=== PATIENT | female | born 1970 | race Caucasian/White ===

== ENCOUNTER 2024-05-20 19:31 | Emergency (ER) | payer OTHER, SELFPAY ==
--- OUTSIDE RECORDS SUMMARY | 2024-05-20 19:33 | XMS_ITS | Referral Summary ---
Author Organization [facility] Address [address] [place] [address] Care Team Providers Care Insight Director Name Role Phone Hussein Simental MD Primary Care Provider [phone] Allergies No known active allergies Medications No known medications Active Problems No known active problems Social History Tobacco Use Types Packs/Day Years Used Date Smoking Tobacco: Light Smoker Comments:Smoking History Pac ks/day: 1 Cigarettes Alcohol Use Standard Drinks/Week Comments Yes 0 (1 standard drink = 0.6 oz pur e alcohol) Personal Safety Answer Date Recorded Getting School Help Needed Not on file 04/12 Comments No Sex and Gender Information Value Date Recorded Sex Assigned at Not on file Legal Sex Female 11:07 PM 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 Gender Identity Not on file Sexual Orientation Not on file Last Filed Vital Signs Vital Sign Reading Time Taken Comments Blood Pressure 123/80 03/22/2021 5:12 PM 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 Pulse 124 03/22/2021 5:43 PM 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 Temperature 37.2 C (99 F) 03/22/2021 5:12 PM 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 Respiratory Rate 14 03/22/2021 5:12 PM 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 Oxygen Saturation 100% 03/22/2021 5:12 PM 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 Inhaled Oxygen Concentration - - Weight 72.6 kg (160 lb) 03/22/2021 5:12 PM 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 Height 172.7 cm (5' 8 ) 03/22/2021 5:12 PM 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 Body Mass Index 24.33 03/22/2021 5:12 PM 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 Plan of Treatment Not on file Insurance [facility] CHOICE PLUS Care Teams Insight Director Relationship Specialty Start Date End Date Hussein Simental MD [address] [place] [address] [place] [address] PCP - General 08/29/20
--- OUTSIDE RECORDS SUMMARY | 2024-05-20 19:33 | XMS_ITS | Clinical Summary ---
Author Organization [facility] Address [address] [place] [address] Care Team Providers Care Ghost Writer Name Role Phone Hussein Simental MD Primary Care Provider [phone] [phone] Allergies No known active allergies Medications No [...] on file Legal Sex Female 11:07 PM MEDICAL OFFICE SCHEDULER Gender Identity Not on file Sexual Orientation Not on file Obstetrics History Last Filed Vital Signs Vital Sign Reading Time Taken Comments Blood Pressure 123/80 03/22/2021 5:12 PM MEDICAL OFFICE SCHEDULER Pulse 124 03/22/2021 5:43 PM MEDICAL OFFICE SCHEDULER Temperature 37.2 C (99 F) 03/22/2021 5:12 PM MEDICAL OFFICE SCHEDULER Respiratory Rate 14 03/22/2021 5:12 PM MEDICAL OFFICE SCHEDULER Oxygen Saturation 100% 03/22/2021 5:12 PM MEDICAL OFFICE SCHEDULER Inhaled Oxygen Concentration - - Weight 72.6 kg (160 lb) 03/22/2021 5:12 PM MEDICAL OFFICE SCHEDULER Height 172.7 cm (5' 8 ) 03/22/2021 5:12 PM MEDICAL OFFICE SCHEDULER Body Mass Index 24.33 03/22/2021 5:12 PM MEDICAL OFFICE SCHEDULER Plan of Treatment Health Maintenance Due Date Last Done Comments Breast Cancer Screening-Mammogram 1972 Cervical Cancer Screening 1972 Colon Cancer Screening-Colonoscopy 1972 Depression Screening 1972 Hepatitis C Screening 1972 Hepatitis B Screening 1990 Regular Well Visit/Exam 18-64 1990 Pneumococcal vaccine <65 (1 of 2 - PCV) 07/10/1991 Zoster Vaccine (1 of 2) 2022 Covid-19 Vaccine (3 - season) 2023, 09/10/2020 Influenza Vaccine (#1) 2023 DTaP/Tdap/Td Vaccine (2 - Td or Tdap) 06/20/202809/2018 Insurance [facility] CHOICE PLUS [facility] HMO/PPO Address: [address] [address] [place] [address] Care Teams Ghost Writer Relationship Specialty Start Date End Date Hussein Simental MD [address] [place] [address] [place] [address] PCP - General 08/29/20
--- OUTSIDE RECORDS SUMMARY | 2024-05-20 19:33 | XMS_ITS | Data Portability ---
Author Organization [facility], Main Office Address [address] [place] [address] Assessment No assessment recorded. Plan of Treatment Reminders Order Date Submit Date Provider Last Modified By Organization Details Last Modified Time Details Appointments None recorded. Lab CBC w/ auto diff [address] 19 Testing, [facility] [address], [address], 4 17:05:05 CMP, serum or plasma [address] Covid 19 Testing, [address] [place] [address], [address], 4 17:05:06 lipid panel, serum [address] (Lab), [address] [place], [address], 4 08:58:34 TSH + free T4, serum [address] Covid 19 Testing, [address], [address], 4 17:05:06 HbA1c (hemoglobin A1c), blood [address] 19 Testing, [facility] [address], [address], 4 08:58:34 vitamin D, 25-hydroxy, total, serum 2023 024 [email or web address] [facility] Covid 19 Testing, [address], [place], [address], 08:58:35 Referral gynecologis t referral - Last PAP 2 years ago . Please eval and treat prn . Please call patient to schedule an appointment . Thank you 2023 024 [email or web address] Augustina Francois MD, [address], [address], [place], [address], 08:35:29 Procedures None recorded. Surgeries None recorded. Imaging MAMMO, screening, digital, bilateral - *Please call pt to schedule* 2023 024 [facility] ([facility]), [address] [place], [address], 4 16:42:21 Medication Orders hydroxyzine HCl 10 mg tablet 2023 024 [facility] [employer] [facility][id number], [address], [place], [id number], 16:49:42 losartan 100 mg tablet 2023 024 [email or web address] daniel [facility] [employer] #[id number], [address], [place], [id number], 21:31:45 Patient TargetsNo targets recorded. Patient Instructions Encounter Date Encounter Id Patient Instructions Last Modified By Organization Details Last Modified Time 09/07/2023 [id number] recheck Bp at home after a week , if bottom number 90 or higher call us. reviewed salty foods to avoid. try Joel , she has Anders seeds. counselled to cut gerardo on etoh , take care of herself ...... 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 Please eval and treat prn . Please call patient to schedule an appointment. Thank you Referring Physician: Randal Moore, Family Medicine, Encounter Date: 09/07/2023 Results Created Date Observation Date Name Description Value Unit Range Abnormal Flag Note LastModifiedBy Organization Detail LastModifiedTime 03/22/19 22 03/22/2021 lane Zepeda i rstic k H PYLORI neg Not Available Z_hrgmc_g mg [address] , [address], [place], [address], 03/22/2021 16:13:12 03/23/19 22 03/23/2021 AMYLA SE SERUM amylase 45 U/L 30-110 Not Available [facility] (Lab) [address] [place], [address], 03/23/2021 13:30:05 03/23/19 22 03/23/2021 COMPR EHENS ABY METAB OLIC PANEL GFR >60 Refer ence Range : [place] ge GFR Healt hy Adult : >60 mL/mi n/1.7 3 m2 Chron ic Kidne y Disea se: 15-60 mL/mi n/1.7 3 m2 Kidne y Failu re: <15/m L/min /1.73 m2 www.n iddk. nih.g ov The MDRD study equat ion has not been valid ated in child jose <18 years of age; pregn ant women ; the elder ly >85 years of age; or in some racia l or ethni c subgr oups, such as Hisny nics. Outsi de the valid ated christine eters , estim ated GFR is less accur ate, requi ring clini sea judgm ent on a case- by-ca se basis . Clini sea inter preta tion for other races and ages must be made by the clini naldo. The MDRD study equat ion has not been valid ated for the evalu ation of serum creat inine relat ed to nutri jerome l statu s or medic ation usage . For perso ns <18 years of age, a pedia tric GFR calcu lator is avail able on the [facility] websi te: https ://akilah woscar quinn.o rg/pr ofess ional s/kdo qi/gf r_cal culat or Not Available [facility] (Lab) [address] [place], [address], 03/23/2021 13:30:02 03/23/19 22 03/23/2021 COMPR EHENS ABY METAB OLIC PANEL sodium 134 mmol/ L 137-14 5 low Not Available [facility] (Lab) [address] [place], [address], 03/23/2021 13:30:02 03/23/19 22 03/23/2021 COMPR EHENS ABY METAB OLIC PANEL potassium 3.9 mmol/ L 3.5-5. 1 Not Available [facility] (Lab) [address] [place], [address], 03/23/2021 13:30:02 03/23/19 22 03/23/2021 COMPR EHENS ABY METAB OLIC PANEL chloride 100 mmol/ L 98-107 Not Available [facility] (Lab) [address] [place], [address], 03/23/2021 13:30:02 03/23/19 22 03/23/2021 COMPR EHENS ABY METAB OLIC PANEL carbon dioxide 26 mmol/ L 22-30 Not Available [facility] (Lab) [address] [place], [address], 03/23/2021 13:30:02 03/23/19 22 03/23/2021 COMPR EHENS ABY METAB OLIC PANEL agap 11.9 mmol/ L 14-22 low Not Available [facility] (Lab) [address] [place], [address], 03/23/2021 13:30:02 03/23/19 22 03/23/2021 COMPR EHENS ABY METAB OLIC PANEL glucose 131 mg/dL 70-99 high Not Available [facility] (Lab) [address] [place], [address], 03/23/2021 13:30:02 03/23/19 22 03/23/2021 COMPR EHENS ABY METAB OLIC PANEL BUN 10 mg/dL 8-19 Not Available [facility] (Lab) [address] [place], [address], 03/23/2021 13:30:02 03/23/19 22 03/23/2021 COMPR EHENS ABY METAB OLIC PANEL creatinine 0.71 mg/dL 0.66-1 .25 Not Available [facility] (Lab) [address] [place], [address], 03/23/2021 13:30:02 03/23/19 22 03/23/2021 COMPR EHENS ABY METAB OLIC PANEL alkaline phosphatase 54 U/L 38-126 Not Available [facility] (Lab) [address] [place], [address], 03/23/2021 13:30:02 03/23/19 22 03/23/2021 COMPR EHENS ABY METAB OLIC PANEL alanine aminotransfe rase 20 U/L 0-35 Not Available [facility] (Lab) [address] [place], [address], 03/23/2021 13:30:02 03/23/19 22 03/23/2021 COMPR EHENS ABY METAB OLIC PANEL total protein 7.7 g/dL 6.3-8. 2 Not Available [facility] (Lab) [address] [place], [address], 03/23/2021 13:30:02 03/23/19 22 03/23/2021 COMPR EHENS ABY METAB OLIC PANEL aspartate aminotransfe rase 27 U/L 15-37 Not Available [facility] (Lab) [address] [place], [address], 03/23/2021 13:30:02 03/23/19 22 03/23/2021 COMPR EHENS ABY METAB OLIC PANEL bilirubin, total 1.50 mg/dL 0.20-1 .30 high Not Available [facility] (Lab) [address] [place], [address], 03/23/2021 13:30:02 03/23/19 22 03/23/2021 COMPR EHENS ABY METAB OLIC PANEL calcium 9.1 mg/dL 8.4-10 .2 Not Available [facility] (Lab) [address] [place], [address], 03/23/2021 13:30:02 03/23/19 22 03/23/2021 COMPR EHENS ABY METAB OLIC PANEL albumin 4.7 g/dL 3.4-5. 0 Not Available [facility] (Lab) [address] [place], [address], 03/23/2021 13:30:02 03/23/19 22 03/23/2021 COMPR EHENS ABY METAB OLIC PANEL globulin 3.0 g/dL 2.6-4. 2 Not Available [facility] (Lab) [address] [place], [address], 03/23/2021 13:30:02 03/23/19 22 03/23/2021 COMPR EHENS ABY METAB OLIC PANEL A/G ratio 1.6 ratio 1.0-2. 0 Not Available [facility] (Lab) [address] [place], [address], 03/23/2021 13:30:02 03/23/19 22 03/23/2021 LIPAS E SERUM lipase 60 U/L 23-300 Not Available [facility] (Lab) [address] [place], [address], 03/23/2021 13:29:52 Result Notes None recorded. 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 Not Available [facility] 3 07:30:54 Alcoholism 5147929 Active 2019 Not Available [facility] 3 07:30:54 Screening for malignant neoplasm of cervix Active 2023 CHERI Iqbal [address], [place], [address] , [employer] [facility] 4 16:37:59 Screening for malignant neoplasm of breast Active 2023 CHERI Iqbal [address], [place], [address] , [employer] [facility] 4 16:38:16 Essential hypertension 36574573 Active 2023 CHERI Iqbal [address], [place], [address] , [employer] [facility] 4 16:46:18 Anxiety 25993413 Active 2023 CHERI Iqbal [address], [place], [address] , [employer] [facility] 4 16:47:34 Problem Notes None recorded. Medical Equipment None Reported. Medications Name Sig Start Date Stop Date Status Note LastModified by Organization Details LastModified Time buspirone 5 mg tablet TAKE 1 TABLET BY MOUTH TWICE DAILY active Not Available Not Available No t Available fluconazole 150 mg tablet Take 1 tablet every day by oral route for 1 day. active Not Available Not Available No t Available naltrexone 50 mg tablet TAKE 1 TABLET BY MOUTH EVERY DAY active Not Available Not Available No t Available metronidazo le 0.75 % (37.5 mg/5 gram) vaginal gel Insert 1 applicato rful every day by vaginal route for 5 days. active Not Available Not Available No t Available penicillin V potassium 500 mg tablet 04/03 completed Not Available Not Available Not Available metronidazo le 500 mg tablet Take 1 tablet twice a day by oral route. 12/05 completed Not Available Not Available Not Available amoxicillin 875 mg tablet active Not Available Not Available Not Available hydrocodone 7.5 mg-acetamin ophen 325 mg tablet 04/03 completed Not Available Not Available Not Available cyanocobala min (vit B-12) 1,000 mcg/mL injection solution Inject 1 mL every month by subcutane ous route. active Not Available Not Available No t Available levofloxaci n 500 mg tablet 04/03 completed Not Available Not Available Not Available hydroxyzine HCl 10 mg tablet Take 1 tablet 3 times a day by oral route as needed for 30 days, for anxiety. active Not Available Not Available No t Available losartan 100 mg tablet TAKE 1 TABLET BY MOUTH EVERY DAY IN THE MORNING 2024 active Not Available Not Available Not Avai lable fluticasone propionate 50 mcg/actuati on nasal spray,suspe nsion 04/03 completed Not Available Not Available Not Available EnilloRing 0.12 mg-0.015 mg/24 hr vaginal ring INSERT 1 RING VAGINALLY FOR 3 WEEKS CONSECUTI VELY, THEN REMOVE FOR 1 WEEK 2023 active Not Available Not Available Not Avai lable Vitals Date Recorded Body mass index (BMI) Body height Oxygen saturation Oxygen saturation in Arterial blood by Pulse oximetry Heart rate Body temperature Body weight Systolic blood pressure Diastolic blood pressure Provider Name and Address Organization Details Last Updated DateTime 1 24.5 kg/m2 172.72 cm 99 % 99 % 100 /min 98.3 [degF] 67371.3 7 g 160 mm[Hg] 100 mm[Hg] Not Available [facility] 3 07:29:05 Date Recorded Body mass index (BMI) Body height Oxygen saturation Oxygen saturation in Arterial blood by Pulse oximetry Heart rate Body temperature Body weight Systolic blood pressure Diastolic blood pressure Provider Name and Address Organization Details Last Updated DateTime 2 24.5 kg/m2 172.72 cm 99 % 99 % 120 /min 98.1 [degF] 34006.3 7 g 122 mm[Hg] 80 mm[Hg] Not Available [facility] 3 07:29:05 Date Recorded Body mass index (BMI) Body height Oxygen saturation Oxygen saturation in Arterial blood by Pulse oximetry Heart rate Body temperature Body weight Systolic blood pressure Diastolic blood pressure Provider Name and Address Organization Details Last Updated DateTime 2 24.3 kg/m2 172.72 cm 98 % 98 % 107 /min 96.8 [degF] 64844.7 8 g 126 mm[Hg] 80 mm[Hg] Not Available [facility] 3 07:29:05 Date Recorded Body mass index (BMI) Body height Oxygen saturation Oxygen saturation in Arterial blood by Pulse oximetry Heart rate Body temperature Body weight Systolic blood pressure Diastolic blood pressure Provider Name and Address Organization Details Last Updated DateTime 2 24.3 kg/m2 172.72 cm 99 % 99 % 92 /min 96.8 [degF] 25063.7 8 g 156 mm[Hg] 98 mm[Hg] Not Available [facility] 3 07:29:05 Date Recorded Body height Body mass index (BMI) Body weight Body temperature Heart rate Oxygen saturation Oxygen saturation in Arterial blood by Pulse oximetry Systolic blood pressure Diastolic blood pressure Provider Name and Address Organization Details Last Updated DateTime 4 172.72 cm 27.9 kg/m2 80209.1 5 g 98.7 [degF] 58 /min 98 % 98 % 180 mm[Hg] 104 mm[Hg] Dianna Grigsby MA [facility] [employer] [facility] 4 16:29:06 Social History None recorded. Functional Status None recorded. Mental Status None recorded. Family History Nothing Reported. Medical History No medical history recorded. Gynecological HistoryNo gynecological history recorded. Obstetrics History GPAL:G 0 P 0 0 0 0 Past Encounters Encounter ID Performer Location Encounter Start Date Encounter Closed Date Diagnosis/Indication Diagnosis SNOMED-CT Code Diagnosis ICD10 Code Diagnosis Note [id number] [facility] [place] [address] 02/01/2021 00:00:00 02/01/2021 20:01:56 [id number] [facility] [place] [address] 03/22/2021 00:00:00 03/23/2021 06:28:50 [id number] [facility] [place] [address] 04/23/2021 00:00:00 04/23/2021 15:15:03 [id number] [facility] Romieelizabeth lle [address] [facility] [place] [address] 07/05/2021 00:00:00 07/05/2021 18:36:38 [id number] [facility] I[facility] Romieelizabeth crescencioe [address] [facility] [address] [place] [address] 09/07/2023 16:12:43 09/07/2023 16:53:30 Screening for malignant neoplasm of cervix 994877799 Z12.4 Screening for malignant neoplasm of breast 533336663 Z12.39 Essential hypertension 62679618 I10 Anxiety 27790539 F41.9 Diabetes m ellitus screening 358041706 Z13.1 Hyperlipid emia screening 520276750 Z13.220 Screening for disorder 054054719 Z13.9 Thyroid di sorder screening 086936633 Z13.29 Health Concerns Section Related Observation LastModified by Organization Detai ls LastModified Time None Recorded Concern Status LastModified by Organization Details LastModified Time None Recorded Advance Directives Directive None Recorded Payers Encounter Date Sequence Insurance Name Policy Number Policy Haley Covered Member ID Haley Member ID Guarantor Name 09/07/2023 1 [employer] ([employer]) Renata Wallis [id number] Renata Wallis Notes Date Note Type Note Provider Name and Address Organization Details Recorded Time 09/07/2023 text/html 2 years ago at [employer] [facility] , happy , took high paying -high stress job , sits 8 hours a day , 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 [address], [place], [address], [facility] [employer] 09/18/2023 21:35:35 OBGyn Episode No OBEpisode recorded.
--- OUTSIDE RECORDS SUMMARY | 2024-05-20 19:33 | XMS_ITS | Clinical Summary ---
Author Organization [facility] Address [address] [facility] [place] [address] Care Team Providers Care Ornamental Iron Erector Name Role Phone Unavailable Primary Care Provider Unavailabl e Source Comments [facility],non-owned Affiliates and Associated Physician Practices is amultiple site organization consisting of ambulatory clinics and hospital sitesin [place], [place], [place] and [place]. This disclosure is being madepursuant to the Care Everywhere program and may not contain all information available regarding this patient. Last updated 17.[facility] Allergies No known active allergies Medications * Be aware that medications may not be up to date on this document. Alwaysverify current medications with the patient. Medication Sig Dispensed Refills Start Date End Date Status Probiotic Product (PROBIOTIC ADVANCED PO) Active Immunizations Name Administration Dates Next Due TDAP (7yrs+) 06/20/2018 Family History Medical History Relation Name Comments Other - Pulmonary/Lung Father Mass Relation Name Status Comments Father Social History Tobacco Use Types Packs/Day Years Used Date Smoking Tobacco: Every Day Cigarettes Smokeless Tobacco: Never Sex and Gender Information Value Date Recorded Sex Assigned at Not on file Gender Identity Not on file Sexual Orientation Not on file Last Filed Vital Signs Vital Sign Reading Time Taken Comments Blood Pressure 132/84 06/20/2018 5:48 PM CDT Pulse 88 06/20/2018 5:48 PM CDT Temperature 37.1 C (98.7 F) 06/20/2018 5:48 PM CDT Respiratory Rate 16 06/20/2018 5:48 PM CDT Oxygen Saturation 99% 06/20/2018 5:48 PM CDT Inhaled Oxygen Concentration - - Weight 69.4 kg (153 lb) 06/20/2018 5:48 PM CDT Height 172.7 cm (5' 8 ) 06/20/2018 5:48 PM CDT Body Mass Index 23.26 06/20/2018 5:48 PM CDT Plan of Treatment Health Maintenance Due Date Last Done Comments COLOGUARD (AGES 45-75) - COL ON CA SCREENING 1972 COLON MONITORING 1972 COLONOSCOPY - COLON CA SCREENING 1972 CT COLONOGRAPHY - COLON CA SCREENING 1972 Colorectal Cancer Screening 1972 FIT - COLON CA SCREENING 1972 FLEX SIG - COLON CA SCREENING 1972 LIPID TESTING 1972 MAMMOGRAM 1972 PAP SMEAR 1972 HIV SCREENING 07/10/1987 HEPATITIS C SCREENING 07/05/1990 HEPATITIS B VACCINE (1 of 3 - 19+ 3-dose series) 07/10/1991 PNEUMOCOCCAL VACCINE (1 of 2 - PCV) 07/10/1991 PNEUMOCOCCAL VACCINE 50+ (1 of 1 - PCV) 2022 ZOSTER VACCINE (1 of 2) 2022 COVID-19 VACCINE (1 - 2023-2 5 season) 2023 DEPRESSION SCREENING 02/14/2024 INFLUENZA VACCINE (Season Ended) 2024 DTAP/TDAP/TD VACCINES (2 - T d or Tdap) 06/20/2028 06/20/2018 HIB VACCINE Aged Out No longer eligi ble based on patient's age to complete this topic HPV VACCINE Aged Out No longer eligi ble based on patient's age to complete this topic MENINGOCOCCAL (Group B) VACC INE SHARED DECISION-MAKING Aged Out No longer eligibl e based on patient's age to complete this topic MENINGOCOCCAL GROUPS A/C/Y/W VACCINE Aged Out No longer eligible b ased on patient's age to complete this topic
[2024-05-20 19:53] VITALS: BP 187/105; PULSE 94; RESP 16; TEMP 36.7; O2SAT 99
--- NOTE | 2024-05-20 19:56 | ECG_ITS ---
Test Date: 2024-05-20 21:31:11 Measurements Intervals [place] Rate: 82 P: 50 NE: 128 QRS: 57 QRSD: 89 T: 41 QT: 368 QTc: 432 Interpretive Statements SINUS RHYTHM BASELINE ARTIFACT- I, AVR, AVL, AVF NORMAL ECG No previous ECG available for comparison Electronically Signed On 05-21-2024 06:34:40 CDT by Prashanth Julio D.O.
[2024-05-20 22:45] VITALS: BP 146/94; PULSE 84; RESP 14; O2SAT 100
--- OUTSIDE RECORDS SUMMARY | 2024-05-21 00:24 | XMS_ITS | Clinical Summary ---
Author Organization [facility] Address [address] [place] [address] Care Team Providers Care Soft Drink Powder Mixer Name Role Phone Hussein Simental MD Primary Care Provider +1 [phone] Allergies No known active allergies Medications No [...] on file Legal Sex Female 11:07 PM [employer]VANCE [employer] Gender Identity Not on file Sexual Orientation Not on file Obstetrics History Last Filed Vital Signs Vital Sign Reading Time Taken Comments Blood Pressure 123/80 03/22/2021 5:12 PM ADVANCE SCOUT Pulse 124 03/22/2021 5:43 PM ADVANCE SCOUT Temperature 37.2 C (99 F) 03/22/2021 5:12 PM ADVANCE SCOUT Respiratory Rate 14 03/22/2021 5:12 PM ADVANCE SCOUT Oxygen Saturation 100% 03/22/2021 5:12 PM ADVANCE SCOUT Inhaled Oxygen Concentration - - Weight 72.6 kg (160 lb) 03/22/2021 5:12 PM ADVANCE SCOUT Height 172.7 cm (5' 8 ) 03/22/2021 5:12 PM ADVANCE SCOUT Body Mass Index 24.33 03/22/2021 5:12 PM ADVANCE SCOUT Plan of Treatment Health Maintenance Due Date [...] Td or Tdap) 06/20/202809/2018 Insurance [facility] CHOICE PLUS Care Teams Soft Drink Powder Mixer Relationship Specialty Start Date End Date Hussein Simental MD [address] [place] [address] [place] [address] PCP - General 08/29/20
--- OUTSIDE RECORDS SUMMARY | 2024-05-21 00:24 | XMS_ITS | Clinical Summary ---
Author Organization [facility] [employer] Address [address] [place] [address] Care Team Providers Care Enterprise Services Manager Name Role Phone Unavailable Primary Care Provider Unavailabl e Source Comments [facility] [employer],non-owned Affiliates and Associated Physician Practices is amultiple site organization consisting of ambulatory clinics and hospital sitesin [place], [place], [place] and [place]. This disclosure is being madepursuant to the Care Everywhere program and may not contain all information available regarding this patient. Last updated 17.[facility] [employer] Allergies No known active allergies Medications * [...]
--- OUTSIDE RECORDS SUMMARY | 2024-05-21 00:24 | XMS_ITS | Referral Summary ---
Author Organization [facility] Address [address] [place] [address] Care Team Providers Care Wrapper Cashier Name Role Phone Hussein Simental MD Primary Care Provider [phone] Allergies No known active allergies Medications No [...] on file Legal Sex Female 11:07 PM BOTTOMER OPERATOR Gender Identity Not on file Sexual Orientation Not on file Last Filed Vital Signs Vital Sign Reading Time Taken Comments Blood Pressure 123/80 03/22/2021 5:12 PM BOTTOMER OPERATOR Pulse 124 03/22/2021 5:43 PM BOTTOMER OPERATOR Temperature 37.2 C (99 F) 03/22/2021 5:12 PM BOTTOMER OPERATOR Respiratory Rate 14 03/22/2021 5:12 PM BOTTOMER OPERATOR Oxygen Saturation 100% 03/22/2021 5:12 PM BOTTOMER OPERATOR Inhaled Oxygen Concentration - - Weight 72.6 kg (160 lb) 03/22/2021 5:12 PM BOTTOMER OPERATOR Height 172.7 cm (5' 8 ) 03/22/2021 5:12 PM BOTTOMER OPERATOR Body Mass Index 24.33 03/22/2021 5:12 PM BOTTOMER OPERATOR Plan of Treatment Not on file Insurance [employer] [facility] PLUS Care Teams Wrapper Cashier Relationship Specialty Start Date End Date Hussein Simental MD [address] [place] [address] [place] [address] PCP - General 08/29/20
[2024-05-21] MEDS: chlordiazePOXIDE (*CRX) 25 MG CAPSULE PO (01:26)
--- NOTE | 2024-05-21 08:00 | ED.RECABL ---
HPI - Recheck/Abnormal Lab/Rx General Chief Complaint: Recheck/Abnormal Lab/Rx Stated Complaint: HTN 185/118 Time Seen by Provider: 05/21/24 00:09 Source: patient Mode of arrival: ambulatory Limitations: no limitations History of Present Illness HPI narrative: This is a 53-year-old female, with history of hypertension, who presents to the emergency department complaining of mild headache and elevated blood pressures. The patient states she of 8 general global headache without other changes. She checked her blood pressure at home and was to be in the mid 180s over 110s. She checked her blood pressure at a pharmacy, confirm the elevations and presented here for evaluation. She denies chest pain, shortness of breath loss of consciousness, weakness or numbness or change/loss of vision or hearing. She states she drinks at least 3 cups of coffee a day and drinks 9 beers a night. She states she has had only 1 beer this evening. She believes she has a problem with abusing alcohol. She has no other complaints at this time. Related Data Home Medications ?Medication ?Instructions ?Recorded ?Confirmed ?Last Taken ?Type losartan 25 mg tablet 25 mg PO DAILY 11/23/23 01/04/24 Unknown History hydroxyzine HCl 10 mg tablet mg PO 01/04/24 01/04/24 Unknown History Allergies Allergy/AdvReac Type Severity Reaction Status Date / Time No Known Allergies Allergy Verified 01/04/24 08:43 Review of Systems Review of Systems: All systems reviewed & are unremarkable except as noted in HPI and below PMFSH Past Medical History Medical History Hypertension Anxiety Surgical History Surgical History No significant past surgical history Family History Family History Father Lung cancer Grandparent Lung cancer Social History Social History (Updated 05/21/24 @ 08:02 by Russ Conroy MD) Smoking status: Never smoker Alcohol intake: current Drinks per week: 63 Alcohol use details: 8-14 drinks a day Substance use: never Do You Feel Safe in your Home?: Yes Lack of Transportation: No Lack of Food: Never True Current Housing: Decline to Answer Concerned About Future Housing: Decline to Answer Difficulty Paying Gas/Electric Bills: Decline to Answer Difficulty Paying for Meds: Decline to Answer Currently Unemployed: Decline to Answer Education: Decline to Answer Difficulty w/ Childcare or Family Care: Decline to Answer Living arrangements: alone Occupation/Education: occupation Gender identity (if verbalized by the patient): Female Sexual Orientation (if Verbalized by the Patient): Straight or Heterosexual Exam Narrative: GENERAL: Well-developed, well-nourished, and in no acute distress. HEAD: Normocephalic, atraumatic. EYES: PERRLA and EOMI. ENT: Nares clear, no rhinorrhea or epistaxis. Mucous membranes moist. Oropharynx without tonsillar hypertrophy exudate or other lesions. NECK: Supple. No adenopathy or masses. No JVD CHEST: Clear to auscultation. No respiratory distress. No wheezes rales or rhonchi HEART: Regular rate and rhythm. No murmur heard. Normal peripheral pulses. ABDOMEN: Soft, nontender, nondistended, normal active bowel sounds. EXTREMITIES: Normal range of motion. No edema. SKIN: Warm, dry, no rash. NEURO: Alert and oriented x3. No focal deficit. Moving all 4 limbs spontaneously. No noted tongue fasciculations or trauma PSYCH: Normal mood and affect. Course Course Emergency Course: 01:11 -the patient's blood pressure has improved without any other intervention here. I suspect her elevated pressure may be related to her degree of alcohol abuse. We discussed treatment options for alcohol abuse in the patient is very receptive. Will discharge on a Librium taper recommendation for primary care follow-up. Discussed return and emergency precautions including signs/symptoms of hypertensive emergency, alcohol withdrawal and delirium tremens. The patient voiced understanding and agreement with the plan. All questions answered to her satisfaction. Vital Signs Vital signs: Vital Signs Temperature 98.1 F 05/20/24 19:53 Pulse Rate 94 05/20/24 19:53 Respiratory Rate 16 05/20/24 19:53 Blood Pressure 187/105 H 05/20/24 19:53 Pulse Oximetry 99 05/20/24 19:53 Oxygen Delivery Room Air 05/20/24 19:53 Temperature 98.1 F 05/20/24 19:53 Pulse Rate 84 05/20/24 22:45 Respiratory Rate 14 05/20/24 22:45 Blood Pressure 146/94 H 05/20/24 22:45 Pulse Oximetry 100 05/20/24 22:45 Oxygen Delivery Room Air 05/20/24 19:53 MDM - Recheck/Abnormal Lab/Rx MDM Narrative Medical decision making narrative: Plan: Blood pressure control, reassess Differential Diagnosis Differential diagnosis: Likely other (Hypertension, medication noncompliance, alcohol abuse, alcohol withdrawal, other) ECG Data EKG #1: Attestation: I personally reviewed and interpreted this ECG as follows: ECG completion date: 05/20/24 ECG completion time: 21:31 Prior ECG tracings: not available for review Interpretation: Sinus rhythm, rate 82, normal axis, no ST segment elevations or T-wave inversions concerning for ischemia, normal intervals with QTC of 432. Discharge Plan Discharge Clinical Impression: Alcohol abuse Hypertension Qualifiers: Hypertension type: unspecified Qualified Code(s): I10 - Essential (primary) hypertension Patient Disposition: Home Condition: Stable Instructions: Antibiotic Form, Alcohol Withdrawal (ED) Additional Instructions: You were seen in the emergency department. Your exam is reassuring. Your blood pressure improved without other intervention. I recommend a Librium taper and discussing alcohol abuse resources with your primary care doctor. If you develop hallucinations, seizures, persistent vomiting, or if you have other emergent concerns for life, limb, or eyesight, return to the emergency department. Patient Language: Croatian Prescriptions: New chlordiazepoxide HCl 25 mg capsule 25 mg PO Q12H PRN (Reason: alcohol withdrawal) Qty: 15 0RF Rx Instructions: Day 1 take 2 capsules by mouth every 6 hours, Day 2: Take 1 capsule by mouth every 6 hours, Day 3: Take 1 capsule by mouth every 12 hours, Day 4: Take 1 capsule by mouth at night No Action hydroxyzine HCl 10 mg tablet PO estradiol 0.1 mg/24 hr patch semiweekly 1 patch transdermal 2XW Qty: 24 4RF Rx Instructions: apply 1 patch for 3 days alternating with 1 patch for 4 days each week to be combined with estradiol 0.05mg patch to equal 0.15mg weekly losartan 25 mg tablet 25 mg PO DAILY progesterone micronized 200 mg capsule 200 mg PO QHS Qty: 90 3RF estradiol 0.05 mg/24 hr patch semiweekly 1 patch transdermal 2XW Qty: 24 4RF Rx Instructions: apply 1 patch for 3 days alternating with 1 patch for 4 days each week to be combined with 0.1mg (to equal 0.15mg weekly) Follow-up/Referrals: Oscar,CHERI Garcia [Non-Staff] - 1 Week Stand Alone Forms: Work/School Release IP Time of Disposition: 01:11
== END 2024-05-21 01:26 | disposition home or self-care (01) ==
PROVIDERS: Emergency Provider Preventive Medicine Aerospace Medicine
DX: F10.10 Alcohol abuse, uncomplicated (principal); Y90.9 Presence of alcohol in blood, level not specified; I10 Essential (primary) hypertension; F41.9 Anxiety disorder, unspecified; Z79.899 Other long term (current) drug therapy
CPT/HCPCS: 93005; 99283; A9270